=== PATIENT | female | born 1970 | race Asian ===

== ENCOUNTER 2019-12-28 20:35 | Emergency (ER) | payer MEDICAID ==
[~2019-12-28] VITALS: Ht 157.5 cm; Wt 59.0 kg
[2019-12-28 20:40] VITALS: BP_SYST 144
--- NOTE | 2019-12-28 20:46 | NUR ---
Note kolby in [facility] - 12/28/19 at 2345 by [email or web address] Patient to ER HW1 for evaluation. Side rails up.
--- NOTE | 2019-12-28 20:46 | NUR ---
Patient triaged and placed in waiting room. VSS and patient appears in no acute distress at this time. Awaiting available bed, and MD notified of need for MSE.
--- NOTE | 2019-12-28 22:20 | NUR ---
Pt brought back to ED HW1 CHAIR for Evaluation.
--- NOTE | 2019-12-28 22:21 | NUR ---
Pt brought in by self. Pt states she was playing vollyball with son this evening. Pt states she slid and fell while playing volleyball. Pt states she felt a pop in the R wrist, and pain thereafter. Pt denies KO, denies any other medical complaint at this time. Pt Resting in ed chair, mild-moderate distress. Pt has good pulse/motor/sensory to extremity.
--- NOTE | 2019-12-28 22:24 | NUR ---
ER at Chairside examining patient.
[2019-12-28] MEDS ORDERED: IBUPROFEN 600 MG TABLET PO ONE (22:45)
[2019-12-28 23:00] VITALS: BP_SYST 131
--- NOTE | 2019-12-28 23:00 | NUR ---
Patient given written and verbal discharge instructions and verbalizes understanding. ER MD discussed with patient the results and treatment provided. Patient in stable condition. ID arm band removed. No IV Rx of Motrin given. Patient educated on pain management and to follow up with PMD. Pain Scale 2/10. Opportunity for questions provided and answered. Medication side effect fact sheet provided.
== END 2019-12-28 23:00 | disposition home or self-care (01) ==
LOC: SED 20:35
DX: S52.501A Unspecified fracture of the lower end of right radius, initial encounter for closed fracture (principal); W18.39XA Other fall on same level, initial encounter; Y93.68 Activity, volleyball (beach) (court); Y92.89 Other specified places as the place of occurrence of the external cause; Y99.8 Other external cause status
CPT/HCPCS: 73090; 99284

== ENCOUNTER 2021-07-22 02:30 | Emergency (ER) | payer MEDICAID ==
[~2021-07-22] VITALS: Ht 157.5 cm; Wt 63.5 kg
[2021-07-22 02:35] VITALS: BP_SYST 127
== END 2021-07-22 03:20 | disposition left against medical advice (07) ==
LOC: SED 02:30
DX: S61.012A Laceration without foreign body of left thumb without damage to nail, initial encounter (principal); W45.8XXA Other foreign body or object entering through skin, initial encounter; Y93.89 Activity, other specified; Y92.89 Other specified places as the place of occurrence of the external cause; Y99.8 Other external cause status; Z53.21 Procedure and treatment not carried out due to patient leaving prior to being seen by health care provider